=== PATIENT | male | born 1975 | race Caucasian/White ===

== ENCOUNTER 2020-05-09 19:19 | Emergency (ER) | payer BC ==
[~2020-05-09] VITALS: Ht 172.7 cm; Wt 83.5 kg
[2020-05-09 19:34] VITALS: BP 148/100
--- NOTE | 2020-05-09 19:35 | NUR ---
PT AMBUALTED TO BED 8 WITH STEADY GAIT.
--- NOTE | 2020-05-09 19:37 | NUR ---
PATIENT PRESENTS TO ED WITH C/O MIGRAINE H/A SINCE YESTERDAY . PT STATES (+) PHOTOPHOBIA WITH INCREASED PAIN OS. DENIES N/V/D; SKIN IS PINK/WARM/DRY; AAOX4 WITH EVEN AND STEADY GAIT; LUNGS CLEAR BL; HR EVEN AND REGULAR; PT DENIES ANY FEVER, CP, SOB, OR COUGH AT THIS TIME; PATIENT STATES PAIN OF 10/10 AT THIS TIME; VSS; PATIENT POSITIONED FOR COMFORT; HOB ELEVATED; BEDRAILS UP X2; BED DOWN, LIGHTS TURNED DOWN LOW. ER MD MADE AWARE OF PT STATUS.
[2020-05-09] MEDS ORDERED: PROCHLORPERAZINE 10 MG/2 ML VIAL IM ONE (19:55)
[2020-05-09] MEDS ORDERED: KETOROLAC 30 MG/ML VIAL IM ONE (19:55)
[2020-05-09] MEDS ORDERED: diphenhydrAMINE 50 MG/ML VIAL IM ONE (19:55)
[2020-05-09 20:25] VITALS: BP 148/100
--- NOTE | 2020-05-09 20:25 | NUR ---
Patient discharged with v/s stable. Written and verbal after care instructions given and explained. Patient verbalized understanding. Ambulatory with steady gait. All questions addressed prior to discharge. Advised to follow up with PMD.
== END 2020-05-09 20:25 | disposition home or self-care (01) ==
LOC: MED 19:19
DX: G43.909 Migraine, unspecified, not intractable, without status migrainosus (principal)
CPT/HCPCS: 96372; 99284; J0780; J1200; J1885

== ENCOUNTER 2021-10-02 17:42 | Emergency (ER) | payer BC ==
[~2021-10-02] VITALS: Ht 172.7 cm; Wt 83.5 kg
[2021-10-02 17:51] VITALS: BP 171/117
--- NOTE | 2021-10-02 18:44 | NUR ---
HARIS Carreon ASSISTED TO BED #4
--- NOTE | 2021-10-02 18:45 | NUR ---
18G IV LINE INSERTED TO LT AC. BLOOD WORK GATHER VIA IV START AND GIVEN TO LAB.
[2021-10-02 18:58] LABS: BASOPHILS % (AUTO) 0.7 % (0.0-2.0); EOSINOPHILS # (AUTO) 0.1 K/uL (0-0.4); HEMATOCRIT 45.6 % (36-52); HEMOGLOBIN 15.4 g/dL (12.0-18.0); LYMPHOCYTES # (AUTO) 1.2 K/uL (2.0-11.5); LYMPHOCYTES % (AUTO) 32.2 % (20.5-51.1); MEAN CORPUSCULAR HEMOGLOBIN 32 pg (27-31); MEAN CORPUSCULAR HGB CONC 34 g/dL (33-37); MEAN CORPUSCULAR VOLUME 93.3 fL (80-94); MONOCYTES # (AUTO) 0.5 K/uL (0.8-1.0); MONOCYTES % (AUTO) 13.6 % (1.7-9.3); NEUTROPHILS # (AUTO) 1.8 K/uL (1.8-7.7); NEUTROPHILS % (AUTO) 49.5 % (42.2-75.2); PLATELET COUNT (AUTO) 130 K/uL (140-450); RED BLOOD CELL COUNT(AUTO) 4.88 MIL/uL (4.20-6.10); RED CELL DISTRIBUTION WIDTH 12.5 % (11.6-13.7); WHITE BLOOD COUNT (AUTO) 3.7 K/uL (4.8-10.8)
--- NOTE | 2021-10-02 19:05 | NUR ---
ER ASSING PT AT BEDSIDE
[2021-10-02 19:23] LABS: ALBUMIN 3.8 g/dL (3.4-5.0); ASPARTATE AMINOTRANSFERASE 28 U/L (15-37); CHLORIDE 103 mmol/L (98-107); GFR ARICAN-AMERICAN 103 mL/min (>90); GLUCOSE 121 mg/dL (74-106); SODIUM SERUM 140 mmol/L (136-145); TOTAL BILIRUBIN 0.5 mg/dL (0.0-1.0); UREA NITROGEN, BLOOD 8 mg/dL (7-18)
[2021-10-02 20:02] VITALS: BP 164/107
--- NOTE | 2021-10-02 20:02 | NUR ---
Patient discharged with v/s stable. Written and verbal after care instructions given and explained. Patient verbalized understanding. Ambulatory with steady gait. All questions addressed prior to discharge. Advised to follow up with PMD. VSS, A/OX4, AMBULATORY, UNLABORED BREATHING, AND CALM DEMEANOR.
--- NOTE | 2021-10-02 20:02 | NUR ---
NO NURSING INTERVENTIONS NEEDED.
== END 2021-10-02 20:02 | disposition home or self-care (01) ==
LOC: MED 17:42
DX: I10 Essential (primary) hypertension (principal); R42 Dizziness and giddiness
CPT/HCPCS: 36415; 70450; 71045; 80053; 84484; 85025; 93005; 99285